=== PATIENT | female | born 1970 ===

== ENCOUNTER 2021-10-01 08:35 | Outpatient (CLI) | payer OTHER | END 2021-10-01 08:50 | disposition home or self-care (01) | LOC: MRI 08:35 | PROVIDERS: ATTEND Specialist | DX: K80.80 Other cholelithiasis without obstruction (principal); K80.10 Calculus of gallbladder with chronic cholecystitis without obstruction | CPT/HCPCS: 74181 ==

== ENCOUNTER 2021-11-05 11:33 | Day surgery (SDC) | payer OTHER ==
[~2021-11-05 11:33] MED LIST: LOSARTAN-HCTZ1 EACH PO
== END 2021-11-05 12:00 | disposition home or self-care (01) ==
LOC: CIR.AMB 11:33
PROVIDERS: ATTEND Specialist
DX: K80.10 Calculus of gallbladder with chronic cholecystitis without obstruction (principal)